=== PATIENT | male | born 1930 | race Caucasian/White ===

== ENCOUNTER 2018-03-24 10:59 | Outpatient (CLI) | payer OTHER ==
[~2018-03-24 10:59] MED LIST: HYZAAR 100-121 UDTAB; NORVASC10 MG; PROSCAR5 MG; SYNTHROID100 MCG
== END 2018-03-24 11:07 | disposition home or self-care (01) ==
LOC: LAB 10:59
DX: R97.21 Rising PSA following treatment for malignant neoplasm of prostate (principal); R82.8 Abnormal findings on cytological and histological examination of urine

== ENCOUNTER 2019-01-03 09:37 | Outpatient (CLI) | payer OTHER | END 2019-01-03 10:58 | disposition home or self-care (01) | LOC: LAB 09:37 | DX: H25.013 Cortical age-related cataract, bilateral (principal); D68.8 Other specified coagulation defects ==